=== PATIENT | female | born 1940 | race Caucasian/White ===

== ENCOUNTER 2020-03-25 07:04 | Inpatient (IN) | payer MEDICAID ==
[~2020-03-25] VITALS: Ht 160 cm; Wt 64.0 kg
[2020-03-25 08:03] LABS: BASOPHILS % 0.4 % (0.0-2.0); EOSINOPHILS % 0.4 % (0.0-5.0); HEMATOCRIT. 37.8 % (36.0-48.0); LYMPHOCYTES % 26.3 % (20.0-50.0); MEAN CORPUSCULAR HEMOGLOBIN 30.7 pg (28.0-32.0); MEAN CORPUSCULAR VOLUME 89.4 fL (81.0-99.0); MEAN PLATELET VOLUME 8.7 fl (7.4-10.4); MONOCYTES % 9.8 % (2.0-8.0); NEUTROPHILS % 63.1 % (40.0-76.0); PLATELET 96 x1000/uL (130-400); RED BLOOD CELL COUNT 4.23 mill/uL (4.2-5.4); RED CELL DISTRIBUTION WIDTH 15.6 % (11.6-14.6)
[2020-03-25 08:05] LABS: CHLORIDE 108 mEq/L (98-107)
[2020-03-25] MEDS ORDERED: HYDRALAZINE 20MG/ML VIAL IV ONE (08:15)
[2020-03-25] MEDS ORDERED: LORAZEPAM 0.5MG TABLET PO ONE (09:15)
[2020-03-25] MEDS ORDERED: ASPIRIN 81MG TABLET PO ONE (09:15)
[2020-03-25] MEDS ORDERED: KETOROLAC 15MG/ML VIAL IV PRN (11:30)
[2020-03-25] MEDS ORDERED: MAGNESIUM/ALUMINUM HYDROXIDE/SIMETHICONE 30ML UDC PO PRN (11:30)
[2020-03-25] MEDS ORDERED: ACETAMINOPHEN 325MG TABLET PO PRN ×2 (11:30)
[2020-03-25] MEDS ORDERED: DOCUSATE SODIUM 100MG CAPSULE PO PRN (11:30)
[2020-03-25] MEDS ORDERED: DEXTROSE 50% WATER 50ML SYRINGE IV PRN (11:30)
[2020-03-25] MEDS ORDERED: CLONIDINE 0.1MG TABLET PO PRN (11:30)
[2020-03-25] MEDS ORDERED: ONDANSETRON HCL 4MG/2ML INJ IV PRN (11:30)
[2020-03-25] MEDS ORDERED: GUAIFENESIN 200MG/10ML SUGAR FREE UDC PO PRN (11:30)
[2020-03-25] MEDS ORDERED: ZOLPIDEM TARTRATE 5MG TABLET PO PRN (11:30)
[2020-03-25] MEDS ORDERED: IPRATROPIUM/ALBUTEROL 0.5-3(2.5)MG/3ML NEB NEB PRN (11:30)
[2020-03-25] MEDS ORDERED: NITROGLYCERIN 0.4MG TABLET SL SL PRN (11:30)
[2020-03-25] MEDS: AMLODIPINE 10MG TABLET PO SCH (13:32)
[2020-03-25] MEDS: ENOXAPARIN 40MG/0.4ML SYR SUBCUT SCH (13:33)
[2020-03-25] MEDS: FAMOTIDINE 20MG TABLET PO SCH (13:33)
[2020-03-25] MEDS: BLOOD SUGAR DIAGNOSTIC STRIP TEST SCH ×3 (13:38→21:56)
[2020-03-25] MEDS: INSULIN LISPRO 100 UNITS/ML SUBCUT SCH ×3 (13:41→22:05)
[2020-03-25 14:29] LABS: *AMPHETAMINES SCREEN URINE NEGATIVE (NEGATIVE); *BARBITURATES SCREEN URINE NEGATIVE (NEGATIVE); *BENZODIAZEPINES SCREEN URINE NEGATIVE (NEGATIVE); METHADONE URINE SCREEN NEGATIVE (NEGATIVE)
[2020-03-25 14:30] LABS: CANNABINOID URINE SCREEN NEGATIVE (NEGATIVE); OPIATES URINE SCREEN NEGATIVE (NEGATIVE); PHENCYCLIDINE URINE SCREEN NEGATIVE (NEGATIVE)
[2020-03-25 14:31] LABS: *COCAINE SCREEN URINE NEGATIVE (NEGATIVE)
[2020-03-25 15:07] LABS: CREATINE KINASE MB FRACTION 2.6 ng/mL (0.5-3.6)
[2020-03-25 16:00] VITALS: BP 154/70
[2020-03-25 17:24] LABS: T4 FREE 1.15 ng/dL (0.76-1.46)
[2020-03-25 20:00] VITALS: BP 124/50
[2020-03-25 20:50] VITALS: BP 124/50
[2020-03-25] MEDS ORDERED: ISOS30TA6 PO (21:27)
[2020-03-25] MEDS ORDERED: METF-415 PO (21:27)
[2020-03-25] MEDS ORDERED: METO-539 PO (21:27)
[2020-03-25] MEDS ORDERED: LIP40 PO (21:27)
[2020-03-25] MEDS: LISINOPRIL 20MG TABLET PO SCH (21:55)
[2020-03-25] MEDS: ASCORBIC ACID 500 MG TABLET PO SCH (21:56)
[2020-03-25] MEDS: METOPROLOL TARTRATE 25MG TABLET PO SCH (21:56)
[2020-03-26] VITALS: BP 100/71
[2020-03-26] MEDS ORDERED: INSU100I24 SQ (02:06)
[2020-03-26 04:00] VITALS: BP 140/76
[2020-03-26] MEDS: BLOOD SUGAR DIAGNOSTIC STRIP TEST SCH ×4 (06:17→20:57)
[2020-03-26] MEDS: INSULIN LISPRO 100 UNITS/ML SUBCUT SCH ×4 (06:18→21:13)
[2020-03-26 06:32] LABS: CREATINE KINASE 106 IU/L (26-192)
[2020-03-26 06:33] LABS: CREATINE KINASE MB FRACTION 2.6 ng/mL (0.5-3.6)
[2020-03-26 08:00] VITALS: BP 141/75
[2020-03-26] MEDS: METOPROLOL TARTRATE 25MG TABLET PO SCH ×2 (08:37→20:49)
[2020-03-26] MEDS: ASCORBIC ACID 500 MG TABLET PO SCH ×2 (08:38→20:49)
[2020-03-26] MEDS: ZINC SULFATE 220 MG ( 50 ) CAPSULE PO SCH (08:38)
[2020-03-26] MEDS: AMLODIPINE 10MG TABLET PO SCH (08:38)
[2020-03-26] MEDS: FAMOTIDINE 20MG TABLET PO SCH (08:39)
[2020-03-26] MEDS: LISINOPRIL 20MG TABLET PO SCH ×2 (08:39→20:49)
[2020-03-26] MEDS: ENOXAPARIN 40MG/0.4ML SYR SUBCUT SCH (08:42)
[2020-03-26 12:13] VITALS: BP 136/78
[2020-03-26 16:00] VITALS: BP 128/69
[2020-03-26 20:00] VITALS: BP 112/59
[2020-03-27] VITALS (8 sets, daily range): BP systolic 135–160; BP diastolic 39–76
[2020-03-27] MEDS: INSULIN LISPRO 100 UNITS/ML SUBCUT SCH ×2 (06:23→12:14)
[2020-03-27] MEDS: BLOOD SUGAR DIAGNOSTIC STRIP TEST SCH ×2 (06:23→11:38)
[2020-03-27] MEDS: ASCORBIC ACID 500 MG TABLET PO SCH (08:37)
[2020-03-27] MEDS: ZINC SULFATE 220 MG ( 50 ) CAPSULE PO SCH (08:37)
[2020-03-27] MEDS: LISINOPRIL 20MG TABLET PO SCH (08:38)
[2020-03-27] MEDS: FAMOTIDINE 20MG TABLET PO SCH (08:38)
[2020-03-27] MEDS: METOPROLOL TARTRATE 25MG TABLET PO SCH (08:38)
[2020-03-27] MEDS: AMLODIPINE 10MG TABLET PO SCH (08:38)
[2020-03-27] MEDS: ENOXAPARIN 40MG/0.4ML SYR SUBCUT SCH (09:00)
[2020-03-27] MEDS ORDERED: MECLIZINE 25MG TABLET PO NR (09:30)
[2020-03-27] MEDS ORDERED: AMLO10TA4 MT (12:29)
[2020-03-27] MEDS ORDERED: LISI-604 MT (12:31)
[2020-03-27] MEDS ORDERED: ASPI-1497 PO (12:31)
== END 2020-03-27 16:05 | disposition home or self-care (01) | DRG 199 ==
LOC: ER 07:04 → EDBEDREQTM 09:26 → EDBEDREQ 09:26 → 5WST 10:59 → EDBEDREQ 11:07 → ENRESERV 13:33
PROVIDERS: ADMIT Internal Medicine; ATTEND Internal Medicine
DX: I16.1 Hypertensive emergency (principal); H81.10 Benign paroxysmal vertigo, unspecified ear; E11.65 Type 2 diabetes mellitus with hyperglycemia; E07.9 Disorder of thyroid, unspecified; I10 Essential (primary) hypertension; Z79.899 Other long term (current) drug therapy
CPT/HCPCS: 36415; 71045; 80053; 80061; 80305; 82550; 82553; 82962; 83036; 83880; 84439; 84443; 84484; 85025; 93005; 93970; 97116; 97162; 97166; 99285; J0360; J1650; J1815; J1885; J8597